=== PATIENT | female | born 1940 | race Caucasian/White ===

== ENCOUNTER → 2017-01-27 | Outpatient (CLI) | payer MEDICARE, MEDICAID ==
[~2017-01-27] MED LIST: ASPIRIN CHILDRE80 MG PO; ATOXIMETIN-B1 CAP PO; BIOTIN1000 MCG PO; CAL-600 W/D 6001 TAB PO; DIOVAN HCT 12.51 TA6 PO; FOSAMAX70 MG PO; NEURONTIN100 MG PO; STOOL SOFTENER100 M1 PO; VICODIN 5/500 505 MG PO; VICODIN 500 MG-1 TAB PO; ZOVIRAX800 MG PO
== END | disposition home or self-care (01) ==
LOC: MAMMO 02:20
DX: Z12.31 Encounter for screening mammogram for malignant neoplasm of breast (principal)

== ENCOUNTER → 2017-09-15 | Outpatient (CLI) | payer MEDICARE, MEDICAID ==
[~2017-09-15] MED LIST changes: -CAL-600 W/D 6001 TAB PO; +CALCIUM500 M1 PO; +FOSAMAX70 M1 PO; -FOSAMAX70 MG PO; -STOOL SOFTENER100 M1 PO; +STOOL SOFTENER100 MG PO; +VITAMIN C500 M4 PO
== END | disposition home or self-care (01) ==
LOC: US 10:19
DX: I65.23 Occlusion and stenosis of bilateral carotid arteries (principal)

== ENCOUNTER → 2017-10-07 | Day surgery (SDC) | payer MEDICARE, MEDICAID ==
[~2017-10-07] VITALS: Ht 157.4 cm; Wt 62.1 kg
--- NOTE | ~2017-10-07 | O ---
[place], [place] OPERATIVE NOTE NAME: SANDEEP ZIEGLER [facility] #: [id number] UNIT #: [id number] ROOM: DOCTOR: FABIAN SANDHU MD BIRTHDATE: [birth year] DOS: 10/07/2017 PREOPERATIVE DIAGNOSIS: Cataract, left eye. POSTOPERATIVE DIAGNOSIS: Cataract, left eye. OPERATION: Extracapsular cataract extraction by phacoemulsification with posterior chamber intraocular lens implantation, left eye. ANESTHESIA: Monitored standby. OPERATIVE FINDINGS AND PROCEDURE: A 2% Xylocaine topical anesthetic gel was applied to the eye in the preop area. The patient was taken to the operating room and prepped and draped in the standard fashion for sterile intraocular surgery. A time out procedure was performed verifying correct patient, correct site and corrects lens with Fabian Sandhu M.D. The operating microscope was swung into position and the lid speculum was inserted. Using a Alis paracentesis blade, a paracentesis was made through clear cornea. Viscoelastic was used to fill the anterior chamber. Using a metal keratome a 2.4 mm self-sealing clear corneal cataract incision was made temporally at the limbus. Using a pre-bent 25 gauge cystotome needle, a standard continuous curvilinear capsulorrhexis was performed. The anterior capsule was removed with forceps. The lens nucleus was hydrodissected and phacoemulsified in the posterior chamber. Cortical material was removed with the irrigation aspiration hand piece and the posterior capsule was then polished with a curet under irrigation. The posterior chamber and capsular bag were filled with viscoelastic. A posterior chamber intraocular lens manufactured by: [employer], Model #[id number], and 19.5 diopters in strength were then inserted into the posterior chamber and within the capsular bag using the lens cartridge and injector system. Viscoelastic was removed using the irrigation aspiration handpiece. The anterior chamber was filled with balanced salt solution through the paracentesis. Both the paracentesis site and cataract incisions were hydrated with BSS and verified to be water-tight and self-sealing. The incision checked to be water-tight using a Weck-Veronica sponge. The integrity of the cataract wound and ocular tension were checked. Lid speculum and drapes were removed. The patient was transferred from the operating room to the recovery room in satisfactory condition. [place], [place] OPERATIVE NOTE NAME: SANDEEP ZIEGLER UNIT #: [id number] ROOM: DOCTOR: FABIAN SANDHU MD BIRTHDATE: [birth year] FABIAN SANDHU MD CM:OPRECORD:OPERATIVE NOTE 1403 [id number] FABIAN SANDHU MD 10/07/17 1440 interface
[2017-10-07 12:40] VITALS: BP 173/72
[2017-10-07 13:56] VITALS: BP 153/69
[2017-10-07 14:11] VITALS: BP 153/76
[2017-10-07 14:26] VITALS: BP 160/69
== END | disposition home or self-care (01) ==
LOC: SDC 10-05 13:15
DX: H25.812 Combined forms of age-related cataract, left eye (principal); I10 Essential (primary) hypertension; Z88.1 Allergy status to other antibiotic agents; Z88.8 Allergy status to other drugs, medicaments and biological substances; Z98.51 Tubal ligation status; Z90.710 Acquired absence of both cervix and uterus; Z98.890 Other specified postprocedural states; Z82.49 Family history of ischemic heart disease and other diseases of the circulatory system

== ENCOUNTER → 2018-12-14 | Outpatient (CLI) | payer OTHER, MEDICAID | END | disposition home or self-care (01) | LOC: CARD 13:16 | DX: I34.0 Nonrheumatic mitral (valve) insufficiency (principal) ==

== ENCOUNTER → 2019-10-03 | Outpatient (CLI) | payer OTHER, MEDICAID ==
[2019-10-03 11:02] LABS: BASO # 0.1 10*3/uL (0.0-0.1); BASO % 1.3 % (0.0-1.0); EOS # 0.1 10*3/uL (0.0-0.4); EOS % 2.4 % (1.0-4.0); HEMATOCRIT 41.1 % (37.0-47.0); LYMPH # 1.1 10*3/uL (1.3-4.4); LYMPH % 24.3 % (27.0-41.0); MEAN CELL VOLUME 95.4 fl (81.0-99.0); MEAN CORPUSCULAR HGB 29.2 pg (27.0-31.0); MEAN CORPUSCULAR HGB CONC 30.7 g/dl (33.0-37.0); MEAN PLATELET VOLUME 11.3 fl (9.6-12.3); MONO # 0.3 10*3/uL (0.1-1.0); MONO % 7.4 % (3.0-9.0); NEUT % 64.4 % (47.0-73.0); PLATELET COUNT AUTOMATED 159 10*3/uL (130-400); RED BLOOD COUNT 4.31 10*6/uL (4.10-5.10); RED CELL DISTRI WIDTH 14.7 % (0-14.5); WHITE BLOOD COUNT 4.6 10*3/uL (4.8-10.8)
[2019-10-03 11:10] LABS: ALBUMIN 3.6 gm/dl (3.1-4.5); ALKALINE PHOSPHATASE 125 U/L (45-117); BUN 18 mg/dl (7-24); CHLORIDE 108 mmol/L (98-107); CHOLESTEROL 178 mg/dL (<200); CREATININE 0.71 mg/dL (0.55-1.02); FREE T4 1.14 ng/dl (0.76-1.46); HDL CHOLESTEROL 60 mg/dl (40-60); LDL CHOLESTEROL 101 mg/dL (9-159); POTASSIUM 3.7 mmol/L (3.5-5.1); SGOT/AST 16 IU/L (3-35); SGPT/ALT 18 U/L (12-78); SODIUM 141 mmol/L (136-145); TOTAL PROTEIN 7.8 gm/dL (6.4-8.2); TRIGLYCERIDES 87 mg/dl (<150); VLDL CHOLESTEROL 17 mg/dL (6-40)
[2019-10-03 11:15] LABS: THYROID STIM HORMONE (HS) 0.843 uIU/ml (0.358-4.75)
[2019-10-03 11:28] LABS: VITAMIN D, 25-HYDROXY 31.1 ng/mL (30-100)
== END | disposition home or self-care (01) ==
LOC: LAB 08:31 → MAMMO 09:30
PROVIDERS: Internal Medicine
DX: Z12.31 Encounter for screening mammogram for malignant neoplasm of breast (principal); I10 Essential (primary) hypertension; R06.02 Shortness of breath; R60.0 Localized edema; I65.29 Occlusion and stenosis of unspecified carotid artery; R70.0 Elevated erythrocyte sedimentation rate; R53.81 Other malaise; R79.82 Elevated C-reactive protein (CRP); E55.9 Vitamin D deficiency, unspecified

== ENCOUNTER → 2020-11-26 | Outpatient (CLI) | payer OTHER, MEDICAID ==
[2020-11-26 09:19] LABS: BASO # 0.1 10*3/uL (0.0-0.1); BASO % 2.1 % (0.0-1.0); EOS # 0.2 10*3/uL (0.0-0.4); HEMATOCRIT 38.6 % (37.0-47.0); LYMPH # 1.1 10*3/uL (1.3-4.4); LYMPH % 24.1 % (27.0-41.0); MEAN CELL VOLUME 94.8 fl (81.0-99.0); MEAN CORPUSCULAR HGB 30.5 pg (27.0-31.0); MEAN CORPUSCULAR HGB CONC 32.1 g/dl (33.0-37.0); MEAN PLATELET VOLUME 10.7 fl (9.6-12.3); MONO # 0.5 10*3/uL (0.1-1.0); MONO % 9.7 % (3.0-9.0); NEUT # 2.8 10*3/uL (2.3-7.9); NEUT % 60.1 % (47.0-73.0); PLATELET COUNT AUTOMATED 164 10*3/uL (130-400); RED BLOOD COUNT 4.07 10*6/uL (4.10-5.10); RED CELL DISTRI WIDTH 14.6 % (0-14.5); WHITE BLOOD COUNT 4.7 10*3/uL (4.8-10.8)
[2020-11-26 09:31] LABS: ALBUMIN 3.5 gm/dl (3.1-4.5); ALKALINE PHOSPHATASE 111 U/L (45-117); BUN 22 mg/dl (7-24); CHLORIDE 104 mmol/L (98-107); CHOLESTEROL 176 mg/dL (<200); CREATININE 0.79 mg/dL (0.55-1.02); FREE T4 1.18 ng/dl (0.76-1.46); LDL CHOLESTEROL 103 mg/dL (9-159); POTASSIUM 3.4 mmol/L (3.5-5.1); SGOT/AST 14 IU/L (3-35); SGPT/ALT 19 U/L (12-78); SODIUM 138 mmol/L (136-145); TOTAL PROTEIN 7.3 gm/dL (6.4-8.2); TRIGLYCERIDES 82 mg/dl (<150)
[2020-11-26 10:29] LABS: VITAMIN D, 25-HYDROXY 57.8 ng/mL (30-100)
== END | disposition home or self-care (01) ==
LOC: LAB 08:29 → RAD 14:00 → MAMMO 14:30
PROVIDERS: ATTEND Internal Medicine
DX: Z12.31 Encounter for screening mammogram for malignant neoplasm of breast (principal); Z13.820 Encounter for screening for osteoporosis; R73.9 Hyperglycemia, unspecified; I10 Essential (primary) hypertension; E55.9 Vitamin D deficiency, unspecified; Z13.220 Encounter for screening for lipoid disorders; Z78.0 Asymptomatic menopausal state

== ENCOUNTER → 2021-06-14 | Outpatient (CLI) | payer OTHER, MEDICAID | END | disposition home or self-care (01) | LOC: RAD 10:11 | PROVIDERS: ATTEND Internal Medicine | DX: M47.812 Spondylosis without myelopathy or radiculopathy, cervical region (principal); M48.061 Spinal stenosis, lumbar region without neurogenic claudication ==

== ENCOUNTER → 2021-07-09 | Outpatient (CLI) | payer OTHER, MEDICAID | END | disposition home or self-care (01) | LOC: CT 07:49 | PROVIDERS: ATTEND Internal Medicine | DX: K42.9 Umbilical hernia without obstruction or gangrene (principal); K44.9 Diaphragmatic hernia without obstruction or gangrene; R11.2 Nausea with vomiting, unspecified; M85.88 Other specified disorders of bone density and structure, other site; M41.86 Other forms of scoliosis, lumbar region ==

== ENCOUNTER → 2021-07-23 | Outpatient (CLI) | payer OTHER, MEDICAID | END | disposition home or self-care (01) | LOC: CT 08:42 | PROVIDERS: ATTEND Internal Medicine | DX: K57.30 Diverticulosis of large intestine without perforation or abscess without bleeding (principal) ==

== ENCOUNTER → 2022-04-08 | Outpatient (CLI) | payer OTHER, MEDICAID ==
[2022-04-08 09:26] LABS: BASO # 0.1 10*3/uL (0.0-0.1); BASO % 0.9 % (0.0-1.0); EOS # 0.1 10*3/uL (0.0-0.4); EOS % 1.2 % (1.0-4.0); HEMATOCRIT 39.2 % (37.0-47.0); LYMPH # 0.9 10*3/uL (1.3-4.4); LYMPH % 11.9 % (27.0-41.0); MEAN CELL VOLUME 95.4 fl (81.0-99.0); MEAN CORPUSCULAR HGB 30.7 pg (27.0-31.0); MEAN CORPUSCULAR HGB CONC 32.1 g/dl (33.0-37.0); MEAN PLATELET VOLUME 10.7 fl (9.6-12.3); MONO # 0.5 10*3/uL (0.1-1.0); MONO % 6.9 % (3.0-9.0); NEUT % 78.8 % (47.0-73.0); PLATELET COUNT AUTOMATED 149 10*3/uL (130-400); RED BLOOD COUNT 4.11 10*6/uL (4.10-5.10); RED CELL DISTRI WIDTH 13.8 % (0-14.5); WHITE BLOOD COUNT 7.6 10*3/uL (4.8-10.8)
[2022-04-08 09:53] LABS: ALKALINE PHOSPHATASE 106 U/L (46-116); BUN 15 mg/dl (9-23); CHLORIDE 103 mmol/L (98-107); CHOLESTEROL 175 mg/dL (<200); FREE T4 1.14 ng/dl (0.89-1.76); LDL CHOLESTEROL 104 mg/dL (9-159); POTASSIUM 3.9 mmol/L (3.4-5.1); SGPT/ALT 7 U/L (10-49); TOTAL PROTEIN 7.2 gm/dL (6.0-8.0); TRIGLYCERIDES 78 mg/dl (<150)
[2022-04-08 11:25] LABS: VITAMIN D, 25-HYDROXY 53.9 ng/mL (30-100)
== END | disposition home or self-care (01) ==
LOC: LAB 09:02
PROVIDERS: ATTEND Internal Medicine
DX: I10 Essential (primary) hypertension (principal); E55.9 Vitamin D deficiency, unspecified; Z13.0 Encounter for screening for diseases of the blood and blood-forming organs and certain disorders involving the immune mechanism; Z13.89 Encounter for screening for other disorder; Z13.820 Encounter for screening for osteoporosis; Z13.1 Encounter for screening for diabetes mellitus; Z13.21 Encounter for screening for nutritional disorder; Z13.228 Encounter for screening for other metabolic disorders; Z13.29 Encounter for screening for other suspected endocrine disorder; Z13.6 Encounter for screening for cardiovascular disorders; Z13.9 Encounter for screening, unspecified

== ENCOUNTER → 2022-04-18 | Outpatient (CLI) | payer OTHER, MEDICAID | END | disposition home or self-care (01) | LOC: CT 01:31 | PROVIDERS: ATTEND Internal Medicine | DX: I67.82 Cerebral ischemia (principal); I65.23 Occlusion and stenosis of bilateral carotid arteries; R90.82 White matter disease, unspecified; R41.81 Age-related cognitive decline ==

== ENCOUNTER → 2022-05-16 | Outpatient (CLI) | payer OTHER, MEDICAID | END | disposition home or self-care (01) | LOC: US 01:01 | PROVIDERS: ATTEND Internal Medicine | DX: I65.23 Occlusion and stenosis of bilateral carotid arteries (principal); R42 Dizziness and giddiness; I10 Essential (primary) hypertension ==

== ENCOUNTER → 2023-08-04 | Outpatient (CLI) | payer OTHER, MEDICAID ==
[2023-08-04 12:20] LABS: BASO # 0.1 10*3/uL (0.0-0.1); BASO % 1.8 % (0.0-1.0); EOS # 0.1 10*3/uL (0.0-0.4); EOS % 1.8 % (1.0-4.0); HEMATOCRIT 36.1 % (37.0-47.0); LYMPH # 1.2 10*3/uL (1.3-4.4); LYMPH % 26.7 % (27.0-41.0); MEAN CELL VOLUME 94.8 fl (81.0-99.0); MEAN CORPUSCULAR HGB 29.9 pg (27.0-31.0); MEAN CORPUSCULAR HGB CONC 31.6 g/dl (33.0-37.0); MEAN PLATELET VOLUME 10.8 fl (9.6-12.3); MONO # 0.3 10*3/uL (0.1-1.0); MONO % 6.9 % (3.0-9.0); NEUT # 2.8 10*3/uL (2.3-7.9); NEUT % 62.6 % (47.0-73.0); PLATELET COUNT AUTOMATED 151 10*3/uL (130-400); RED BLOOD COUNT 3.81 10*6/uL (4.10-5.10); RED CELL DISTRI WIDTH 14.3 % (0-14.5); WHITE BLOOD COUNT 4.5 10*3/uL (4.8-10.8)
[2023-08-04 12:47] LABS: VITAMIN D, 25-HYDROXY 41.7 ng/mL (30-100)
[2023-08-04 12:48] LABS: ALKALINE PHOSPHATASE 128 U/L (46-116); BUN 11 mg/dl (9-23); CHLORIDE 106 mmol/L (98-107); CHOLESTEROL 172 mg/dL (<200); FREE T4 1.11 ng/dl (0.89-1.76); LDL CHOLESTEROL 107 mg/dL (9-159); POTASSIUM 3.8 mmol/L (3.4-5.1); SGPT/ALT 9 U/L (5-49); TOTAL PROTEIN 6.9 gm/dL (6.0-8.0); TRIGLYCERIDES 66 mg/dl (<150)
== END | disposition home or self-care (01) ==
LOC: CARD 01:13 → LAB 01:13 → CARD 12:00
PROVIDERS: ATTEND Internal Medicine
DX: I10 Essential (primary) hypertension (principal); R11.2 Nausea with vomiting, unspecified; M32.10 Systemic lupus erythematosus, organ or system involvement unspecified; E78.2 Mixed hyperlipidemia; E55.9 Vitamin D deficiency, unspecified; E03.9 Hypothyroidism, unspecified

== ENCOUNTER → 2023-08-25 | Outpatient (CLI) | payer OTHER, MEDICAID ==
[2023-08-25 14:34] LABS: BUN 13 mg/dl (9-23); CHLORIDE 107 mmol/L (98-107); POTASSIUM 4.2 mmol/L (3.4-5.1)
== END | disposition home or self-care (01) ==
LOC: LAB 09:08
PROVIDERS: ATTEND Internal Medicine
DX: Z13.0 Encounter for screening for diseases of the blood and blood-forming organs and certain disorders involving the immune mechanism (principal)

== ENCOUNTER → 2023-08-26 | Outpatient (CLI) | payer OTHER, MEDICAID ==
[~2023-08-26] MED LIST changes: +IOHEXOL 350 MG/ML 100 ML VIAL IV ONE; +SODIUM CHLORIDE 0.9% 100 ML BAG IV ONE; +SODIUM CHLORIDE 0.9% 100 ML IV ONE
== END ==
LOC: CT 00:07
PROVIDERS: ATTEND Internal Medicine
DX: J98.11 Atelectasis (principal); R93.1 Abnormal findings on diagnostic imaging of heart and coronary circulation

== ENCOUNTER → 2024-06-04 | Outpatient (CLI) | payer OTHER, MEDICAID ==
[~2024-06-04] MED LIST changes: -IOHEXOL 350 MG/ML 100 ML VIAL IV ONE; -SODIUM CHLORIDE 0.9% 100 ML BAG IV ONE; -SODIUM CHLORIDE 0.9% 100 ML IV ONE
[2024-06-04 08:51] LABS: BASO # 0.1 10*3/uL (0.0-0.1); BASO % 1.3 % (0.0-1.0); EOS # 0.1 10*3/uL (0.0-0.4); EOS % 2.5 % (1.0-4.0); HEMATOCRIT 39.7 % (37.0-47.0); MEAN CELL VOLUME 95.9 fl (81.0-99.0); MEAN CORPUSCULAR HGB 30.2 pg (27.0-31.0); MEAN CORPUSCULAR HGB CONC 31.5 g/dl (33.0-37.0); MEAN PLATELET VOLUME 10.9 fl (9.6-12.3); MONO # 0.4 10*3/uL (0.1-1.0); MONO % 7.8 % (3.0-9.0); NEUT # 3.1 10*3/uL (2.3-7.9); PLATELET COUNT AUTOMATED 147 10*3/uL (130-400); RED BLOOD COUNT 4.14 10*6/uL (4.10-5.10); RED CELL DISTRI WIDTH 15.3 % (0-14.5); WHITE BLOOD COUNT 4.8 10*3/uL (4.8-10.8)
[2024-06-04 09:38] LABS: VITAMIN D, 25-HYDROXY 44.8 ng/mL (30-100)
[2024-06-04 09:52] LABS: ALKALINE PHOSPHATASE 106 U/L (46-116); BUN 15 mg/dl (9-23); CHLORIDE 105 mmol/L (98-107); CHOLESTEROL 168 mg/dL (<200); FREE T4 1.15 ng/dl (0.89-1.76); LDL CHOLESTEROL 94 mg/dL (9-159); POTASSIUM 4.1 mmol/L (3.4-5.1); SGPT/ALT 12 U/L (5-49); TOTAL PROTEIN 7.2 gm/dL (6.0-8.0); TRIGLYCERIDES 84 mg/dl (<150)
== END | disposition home or self-care (01) ==
LOC: LAB 08:13
PROVIDERS: ATTEND Internal Medicine
DX: I10 Essential (primary) hypertension (principal); R73.9 Hyperglycemia, unspecified; R53.83 Other fatigue; E53.9 Vitamin B deficiency, unspecified; E55.9 Vitamin D deficiency, unspecified